=== PATIENT | male | born 1965 | race African-American/Black ===

== ENCOUNTER 2016-11-04 16:07 | Inpatient (IN) | payer SELFPAY ==
[~2016-11-04] VITALS: Ht 180.3 cm; Wt 64.9 kg
[2016-11-04] MEDS ORDERED: IV NORMAL SALINE 1000ML BAG 1,000 ML IV SCH (16:25)
[2016-11-04] MEDS ORDERED: ONDANSETRON PF 4 MG/2 ML VIAL. IV ONE (16:30)
[2016-11-04] MEDS ORDERED: NITROGLYCERIN SUBLINGUAL 0.4 MG BOTTLE OF 25. SL PRN (16:30)
[2016-11-04] MEDS ORDERED: ASPIRIN CHEWABLE 81 MG TABLET. PO ONE (16:30)
[2016-11-04] MEDS ORDERED: FENTANYL PF 100 MCG/2 ML VIAL. IV PRN (16:30)
--- NOTE | 2016-11-04 16:38 | PHYS DOC ---
Past Medical History Past Medical History: No Pertinent History Past Surgical History: Other Additional Past Surgical Histo: Inguinal hernia R) Alcohol Use: Heavy Drug Use: None Adult General Chief Complaint Chief Complaint: CHEST PAIN HPI HPI Patient is a 51 year old male who presents with complaint of chest pain. Patient states he started having intermittent chest pain last night, however he started getting constant pain earlier this morning that has persisted throughout the day. Patient states that the pain is left-sided, pressure-like, and radiates through his chest into his back. Patient has had associated nausea with his symptoms. Patient has no known health problems but states that he has a greater than [id number] history of smoking. Patient also admits to family history of myocardial infarction in his mother. Patient currently rates his pain as 10 out of 10. Patient has not taken any medications to help with his symptoms at this time. Patient denies any known exacerbating factors, stating that "everything makes it hurt." Patient denies any recent cardiac stress testing. Patient does not have a primary physician at this time. Review of Systems Review of Systems Constitutional: Denies fever or chills [] Eyes: Denies change in visual acuity, redness, or eye pain [] HENT: Denies nasal congestion or sore throat [] Respiratory: Denies cough or shortness of breath [] Cardiovascular: Chest pain [] GI: Nausea, denies abdominal pain, vomiting, bloody stools or diarrhea [] : Denies dysuria or hematuria [] Musculoskeletal: Denies back pain or joint pain [] Integument: Denies rash or skin lesions [] Neurologic: Denies headache, focal weakness or sensory changes [] Current Medications Current Medications Current Medications Medications (Trade) Dose Ordered Sig/Ghanshyam Start Time Stop Time Status Last Admin Dose Admin Aspirin (Children'S Aspirin) 324 mg 1X ONCE 11/04/16 16:30 11/04/16 16:31 DC 11/04/16 17:00 324 MG Fentanyl Citrate 50 mcg 50 mcg PRN Q15MIN PRN 11/04/16 16:30 11/05/16 16:29 11/04/16 17:04 50 MCG Nitroglycerin (Nitrostat) 0.4 mg PRN Q5MIN PRN 11/04/16 16:30 11/05/16 16:29 Ondansetron HCl (Zofran) 4 mg 1X ONCE 11/04/16 16:30 11/04/16 16:31 DC 11/04/16 17:02 4 MG Sodium Chloride (Iv Sodium Chloride 0.9% 1000ml Bag) 1,000 ml @ 100 mls/hr Q10H 11/04/16 16:25 11/05/16 02:24 11/04/16 17:00 100 MLS/HR Allergies Allergies Allergies Coded Allergies Type Severity Reaction Last Updated Verified No Known Drug Allergies 02/12/15 No Physical Exam Physical Exam Constitutional: Alert, afebrile, appears in moderate discomfort. [] HENT: Normocephalic, atraumatic, bilateral external ears normal, oropharynx moist, no oral exudates, nose normal. [] Eyes: PERRLA, EOMI, conjunctiva normal, no discharge. [] Neck: Normal range of motion, no tenderness, supple, no stridor. [] Cardiovascular:Heart rate regular rhythm, no murmur [] Lungs & Thorax: Bilateral breath sounds clear to auscultation [] Abdomen: Bowel sounds normal, soft, no tenderness, no masses, no pulsatile masses. [] Skin: Warm, dry, no erythema, no rash. [] Back: No tenderness, no CVA tenderness. [] Extremities: No tenderness, no cyanosis, no clubbing, ROM intact, no edema. [] Neurologic: Alert and oriented X 3, normal motor function, normal sensory function, no focal deficits noted. [] Current Patient Data Vital Signs Vital Signs Date Time Temp Pulse Resp B/P Pulse Ox O2 Delivery O2 Flow Rate FiO2 11/04/16 17:55 60 24 129/78 97 Nasal Cannula 1 11/04/16 16:10 98.3 98.3 Lab Values Laboratory Tests Test 11/04/16 16:35 11/04/16 17:25 White Blood Count 7.0x10^3/uL (4.0-11.0) Red Blood Count 5.15x10^6/uL (4.30-5.70) Hemoglobin 16.5g/dL (13.0-17.5) Hematocrit 48.7% (39.0-53.0) Mean Corpuscular Volume 95fL (79-100) Mean Corpuscular Hemoglobin 32pg (25-35) Mean Corpuscular Hemoglobin Concent 34g/dL (31-37) Red Cell Distribution Width 14.6% (11.5-14.5) H Platelet Count 218x10^3/uL (140-400) Neutrophils (%) (Auto) 77% (31-73) H Lymphocytes (%) (Auto) 15% (24-48) L Monocytes (%) (Auto) 7% (0-9) Eosinophils (%) (Auto) 0% (0-3) Basophils (%) (Auto) 1% (0-3) Neutrophils # (Auto) 5.3x10^3uL (1.8-7.7) Lymphocytes # (Auto) 1.0x10^3/uL (1.0-4.8) Monocytes # (Auto) 0.5x10^3/uL (0.0-1.1) Eosinophils # (Auto) 0.0x10^3/uL (0.0-0.7) Basophils # (Auto) 0.0x10^3/uL (0.0-0.2) Sodium Level 143mmol/L (136-145) Potassium Level 3.5mmol/L (3.5-5.1) Chloride Level 101mmol/L (98-107) Carbon Dioxide Level 30mmol/L (21-32) Anion Gap 12 (6-14) Blood Urea Nitrogen 10mg/dL (8-26) Creatinine 1.0mg/dL (0.7-1.3) Estimated GFR (Cockcroft-Gault) 94.9 Glucose Level 125mg/dL (70-99) H Calcium Level 10.0mg/dL (8.5-10.1) Magnesium Level 1.7mg/dL (1.8-2.4) L Total Bilirubin 0.3mg/dL (0.2-1.0) Direct Bilirubin 0.1mg/dL (0.0-0.2) Aspartate Amino Transferase (AST) 19U/L (15-37) Alanine Aminotransferase (ALT) 15U/L (16-63) L Alkaline Phosphatase 96U/L (46-116) Creatine Kinase 78U/L (39-308) Creatine Kinase MB (Mass) < 0.5ng/mL (0.0-3.6) Creatine Kinase MB Relative Index 0.6% (0-4) Troponin I Quantitative < 0.017ng/mL (0.000-0.055) AI-Oin-D-Type Natriuretic Peptide 91pg/mL (0-124) Total Protein 7.5g/dL (6.4-8.2) Albumin 3.8g/dL (3.4-5.0) Lipase 77U/L (73-393) Urine Collection Type Unknown Urine Color Jocelyn Urine Clarity Clear Urine pH 6.0 Urine Specific [place] >=1.030 Urine Protein 30mg/dL (NEG-TRACE) Urine Glucose (UA) Negativemg/dL (NEG) Urine Ketones (Stick) 15mg/dL (NEG) Urine Blood Negative (NEG) Urine Nitrite Negative (NEG) Urine Bilirubin Small (NEG) Urine Urobilinogen Dipstick 1.0mg/dL (0.2 mg/dL) Urine Leukocyte Esterase Small (NEG) Urine RBC 0/HPF (0-2) Urine WBC 1-4/HPF (0-4) Urine Squamous Epithelial Cells Occ/LPF Urine Bacteria 0/HPF (0-FEW) Urine Mucus Marked/LPF Urine Opiates Screen Pos (NEG) Urine Methadone Screen Neg (NEG) Urine Barbiturates Neg (NEG) Urine Phencyclidine Screen Neg (NEG) Urine Amphetamine/Methamphetamine Neg (NEG) Urine Benzodiazepines Screen Neg (NEG) Urine Cocaine Screen Neg (NEG) Urine Cannabinoids Screen Pos (NEG) Urine Ethyl Alcohol Neg (NEG) Laboratory Tests 11/04/16 16:35 Laboratory Tests 11/04/16 16:35 EKG EKG Interpreted by me: Heart rate 70, sinus rhythm, rightward axis, no acute ST/T- wave abnormalities present [] Radiology/Procedures Radiology/Procedures [facility] [address] [place] [address] IMAGING REPORT Signed PATIENT: ALEXIA HARRIS ACCOUNT: [id number] : 1965 LOCATION: ER AGE: 51 SEX: M EXAM STATUS: PRE ER ORD. PHYSICIAN: KRISTIN CARCAMO MD REASON: chest pain PROCEDURE: PORTABLE CHEST 1V Portable chest, 11/04/2016: History: Chest pain The heart size and pulmonary vascularity are normal. Small nodular opacities projected over the lower chest are most likely nipple shadows. No pulmonary infiltrates are seen. There is no evidence of pleural fluid. IMPRESSION: No acute cardiopulmonary abnormality is detected. DICTATED and SIGNED BY: KATHY NAQVI MD DATE: 11/04/16 8346 CC: KRISTIN CARCAMO MD; NO PCP ~ [] Course & Med Decision Making Course & Med Decision Making Pertinent Labs and Imaging studies reviewed. (See chart for details) The patient was treated with aspirin and fentanyl in the emergency department. Patient's symptoms have improved with treatment. The patient has risk factors for coronary artery disease and patient does not have adequate follow-up. For this reason the patient will need to be admitted for rule out of myocardial infarction. I spoke with Dr. Cisneros who accepted care patient in hospital. A consult was placed to Dr. Meadows of cardiology to follow with patient in hospital. Dragon Disclaimer Dragon Disclaimer This electronic medical record was generated, in whole or in part, using a voice recognition dictation system. Departure Departure Impression: Primary Impression: Chest pain Additional Impressions: Tobacco use Family history of myocardial infarction Disposition: ADMITTED INPATIENT Admitting Physician: Sarah Cisneros Condition: STABLE Referrals: NO PCP (PCP) Problem Qualifiers Primary Impression: Chest pain Chest pain type: unspecified Qualified Code: R07.9 - Chest pain, unspecified KRISTIN CARCAMO MD Nov 04, 2016 16:38
--- NOTE | 2016-11-04 16:48 | RAD ---
Portable chest, 11/04/2016: History: Chest pain The heart size and pulmonary vascularity are normal. Small nodular opacities projected over the lower chest are most likely nipple shadows. No pulmonary infiltrates are seen. There is no evidence of pleural fluid. IMPRESSION: No acute cardiopulmonary abnormality is detected.
[2016-11-04 16:58] LABS: BASO % 1 % (0-3); EOS % 0 % (0-3); HEMATOCRIT 48.7 % (39.0-53.0); HEMOGLOBIN 16.5 g/dL (13.0-17.5); LYMPH % 15 % (24-48); MEAN CORPUSCULAR HEMOGLOBIN 32 pg (25-35); MEAN CORPUSCULAR HGB CONC 34 g/dL (31-37); MEAN CORPUSCULAR VOLUME 95 fL (79-100); MONO % 7 % (0-9); NEUT % 77 % (31-73); PLATELET COUNT 218 x10^3/uL (140-400); RED BLOOD COUNT 5.15 x10^6/uL (4.30-5.70); RED CELL DISTRIBUTION WIDTH 14.6 % (11.5-14.5)
[2016-11-04 17:39] LABS: BILIRUBIN,URINE SMALL (NEG); GLUCOSE,URINE NEGATIVE (NEG); NITRITE,URINE NEGATIVE (NEG); PROTEIN,URINE 30 mg/dL (NEG-TRACE)
[2016-11-04 17:45] LABS: CREATINE KINASE 78 U/L (39-308)
[2016-11-04 17:45] LABS: BACTERIA,URINE 0 /HPF (0-FEW); BARBITURATES NEG (NEG); BENZODIAZEPINES NEG (NEG); CANNABINOIDS POS (NEG); COCAINE NEG (NEG); METHADONE NEG (NEG); OPIATES POS (NEG); PHENCYCLIDINE NEG (NEG); RBC,URINE 0 /HPF (0-2); SQUAMOUS EPITHELIAL CELL,UR OCC /LPF
[2016-11-04 17:52] LABS: CKMB INDEX 0.6 % (0-4); CKMB MASS < 0.5 ng/mL (0.0-3.6)
[2016-11-04 17:52] LABS: ETHANOL, URINE NEG (NEG)
[2016-11-04 17:58] LABS: GFR 94.9; POTASSIUM 3.5 mmol/L (3.5-5.1)
[2016-11-04 18:05] LABS: ALBUMIN 3.8 g/dL (3.4-5.0); DIRECT BILIRUBIN 0.1 mg/dL (0.0-0.2); MAGNESIUM 1.7 mg/dL (1.8-2.4); TOTAL BILIRUBIN 0.3 mg/dL (0.2-1.0); TOTAL PROTEIN 7.5 g/dL (6.4-8.2)
[2016-11-04] MEDS ORDERED: ACETAMINOPHEN 325 MG TABLET. PO PRN (19:15)
[2016-11-04 20:30] VITALS: BP 129/91
[2016-11-04] MEDS: IV NORMAL SALINE 1000ML BAG 1,000 ML IV SCH (22:27)
[2016-11-04] MEDS ORDERED: MORPHINE SULFATE 2 MG/ML DISP.SYRIN. IV PRN (22:30)
[2016-11-04 23:25] VITALS: BP 128/78
--- NOTE | 2016-11-05 00:07 | HP ---
ADMIT DATE: 11/04/2016 CHIEF COMPLAINT: Chest pain. 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 He states he does not have any coronary problems that he knows of. He presents with chest pain that has been occurring for several days. He rates it at 7/10. He has associated anxiety. Discussed the case with ER physician. The patient does have a couple of risk factors. We are going to admit him and rule out coronary artery disease. PAST MEDICAL HISTORY: Tobacco abuse, arthritis, hypertension. ALLERGIES: None. FAMILY HISTORY: Hypertension and coronary artery disease in his mother. SOCIAL HISTORY: He does smoke. No drinking or drugs. 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 MEDICATIONS: Reviewed, please refer to the MRAD. REVIEW OF SYSTEMS: GENERAL: No history of weight change, weakness or fevers. SKIN: No bruising, hair changes or rashes. EYES: No blurred, double or loss of vision. NOSE AND THROAT: No history of nosebleeds, hoarseness or sore throat. HEART: No history of palpitations or shortness of breath on exertion. He complains of chest pain. LUNGS: Denies cough, hemoptysis, wheezing or shortness of breath. GASTROINTESTINAL: Denies changes in appetite, nausea, vomiting, diarrhea or constipation. GENITOURINARY: No history of frequency, urgency, hesitancy or nocturia. NEUROLOGIC: Denies history of numbness, tingling, tremor or weakness. PSYCHIATRIC: No history of panic, anxiety or depression. ENDOCRINE: No history of heat or cold intolerance, polyuria or polydipsia. EXTREMITIES: Denies muscle weakness, joint pain, pain on walking or stiffness. PHYSICAL EXAMINATION: VITAL SIGNS: Stable. Temperature is afebrile, pulse 63, respirations 20, blood pressure 113/80. GENERAL: He is alert, cooperative. HEART: Normal S1, S2. LUNGS: Clear. ABDOMEN: Soft, positive bowel sounds. EXTREMITIES: No edema. SKIN: No rashes. PSYCHIATRIC: He is anxious. VASCULAR: Good capillary refill. ENDOCRINE: No thyromegaly. LYMPHATICS: No cervical nodes. HEMATOPOIETIC: No bruising. LABORATORY DATA: Troponin is 0. EKG shows sinus rhythm. ASSESSMENT AND PLAN: Chest pain, rule out coronary artery disease. We will check serial enzymes, serial EKGs. Consult Dr. Katrapati, suspect he may need a stress test. I told him to quit smoking. Resume home medicines. DARRYL SAEED DO DR: JOSE/abel JOB#: [id number] / [id number]
[2016-11-05 02:49] VITALS: BP 123/69
[2016-11-05] MEDS: IV NORMAL SALINE 1000ML BAG 1,000 ML IV SCH (03:02)
[2016-11-05] MEDS ORDERED: PROMETH/CODEINE 6.25/10MG 5 ML SYRUP. PO PRN (04:45)
--- NOTE | 2016-11-05 06:24 | EKG ---
[facility] [address] [place] [address] Test Date: 2016-11-04 Test Time: 16:21:23 Pat Name: ALEXIA HARRIS Department: Room: 569 1 Gender: M Curtain Mender: : 1965 Requested By: KRISTIN CARCAMO Order Number: [id number] Reading MD: Angle Rincon Measurements Intervals [place] Rate: 70 P: -40 GA: 124 QRS: 101 QRSD: 78 T: 85 QT: 398 QTc: 433 Interpretive Statements SINUS RHYTHM RIGHTWARD AXIS LOW LIMB LEAD VOLTAGE QRS(T) CONTOUR ABNORMALITY CONSISTENT WITH HIGH LATERAL INFARCT PROBABLY OLD ABNORMAL ECG RI6.01 No previous ECG available for comparison Electronically Signed On 11-07-2016 18:46:59 CDT by Angle Rincon
[2016-11-05 06:49] LABS: BASO % 1 % (0-3); EOS % 1 % (0-3); HEMATOCRIT 45.3 % (39.0-53.0); HEMOGLOBIN 14.9 g/dL (13.0-17.5); LYMPH # 1.8 x10^3/uL (1.0-4.8); LYMPH % 33 % (24-48); MEAN CORPUSCULAR HEMOGLOBIN 32 pg (25-35); MEAN CORPUSCULAR HGB CONC 33 g/dL (31-37); MEAN CORPUSCULAR VOLUME 97 fL (79-100); MONO % 9 % (0-9); NEUT % 57 % (31-73); PLATELET COUNT 196 x10^3/uL (140-400); RED BLOOD COUNT 4.68 x10^6/uL (4.30-5.70); WHITE BLOOD COUNT 5.4 x10^3/uL (4.0-11.0)
[2016-11-05 07:00] VITALS: BP 113/73
[2016-11-05 07:05] LABS: CALCIUM 9.1 mg/dL (8.5-10.1); CREATININE 0.9 mg/dL (0.7-1.3); GFR 107.2; POTASSIUM 3.1 mmol/L (3.5-5.1)
--- NOTE | 2016-11-05 09:03 | PDOC2 ---
SEMAJ BEY [employer]TAIN 11/05/16 0903: CARDIAC CONSULT DATE OF CONSULT Date of Consult DATE: 11/05/16 TIME: 08:55 REASON FOR CONSULT Reason for Consult: Chest pain REFERRING PHYSICIAN Referring Physician: Sheri SOURCE Source: Chart review, Patient HISTORY OF PRESENT ILLNESS HISTORY OF PRESENT ILLNESS This is a 51 yo male admitted for complains of chest pain. Reports as sharp then pressure to right chest that radiated to mid back. This started 2 days ago 8PM which then he felt slightly nauseated as well and slept it off. The next day he was doing well and decided to lift about 100 lb box and felt chest discomfort and was nauseated as well. His nausea resolved but CP was intermittent throughout the day. He then started having diarrhea, 3 bouts of diarrhea yesterday 1 was watery then x2 loose. Denies any fever or chills. There was no diaphoresis, palpitations, dizziness, SOA nor DURBIN. No further recurrence of his symptoms since in ED. Also no recent falls or injury he also has been having almost a daily heartburn which he does not take any medications for it. No daily NSAID use. He does take sinus medications which has sudafed in it almost everyday for his allergies are bad. Denies any CAD, VTE in the past. PAST MEDICAL HISTORY Cardiovascular: No pertinent hx Pulmonary: No pertinent hx CENTRAL NERVOUS SYSTEM: Other (No pertinent history) GI: No pertinent hx Heme/Onc: No pertinent hx Hepatobiliary: No pertinent hx Psych: No pertinent hx Musculoskeletal: Osteoarthritis Rheumatologic: No pertinent hx Infectious disease: No pertinent hx ENT: Allergic Rhinitis Renal/: No pertinent hx Endocrine: No pertinent hx Dermatology: No pertinent hx PAST SURGICAL HISTORY Past Surgical History: Other (left inguinal hernia repair as a child) FAMILY HISTORY Family History: Coronary Artery Disease (mother CAD in her 30s) SOCIAL HISTORY Smoke: 1 pack per day (>20) ALCOHOL: occassional Drugs: Marijuana Lives: with Family CURRENT MEDICATIONS CURRENT MEDICATIONS Current Medications Medications (Trade) Dose Ordered Sig/Ghanshyam Route PRN Reason Start Time Stop Time Status Last Admin Dose Admin Aspirin (Children'S Aspirin) 324 mg 1X ONCE PO 11/04/16 16:30 11/04/16 16:31 DC 11/04/16 17:00 Fentanyl Citrate 50 mcg 50 mcg PRN Q15MIN PRN IV PAIN GREATER THAN 310 11/04/16 16:30 11/05/16 16:29 11/04/16 17:04 Sodium Chloride (Iv Sodium Chloride 0.9% 1000ml Bag) 1,000 ml @ 100 mls/hr Q10H IV 11/04/16 16:25 11/05/16 02:24 DC 11/04/16 17:00 Ondansetron HCl 4 mg 4 mg 1X ONCE IV 11/04/16 16:30 11/04/16 16:31 DC 11/04/16 17:02 Sodium Chloride (Iv Sodium Chloride 0.9% 1000ml Bag) 1,000 ml @ 100 mls/hr Q10H IV 11/04/16 19:01 11/05/16 19:00 11/05/16 03:02 Morphine Sulfate 2 mg PRN Q2HR PRN IV SEVERE PAIN 11/04/16 22:30 11/04/16 23:19 ALLERGIES ALLERGIES: Coded Allergies: No Known Drug Allergies (Unverified , 02/12/15) ROS Review of System 14 point ROS evaluated with pertinent positives noted per HPI PHYSICAL EXAM General: Alert, Oriented X3, Cooperative, No acute distress HEENT: Atraumatic, Mucous membr. moist/pink Lungs: Clear to auscultation, Normal air movement Heart: Regular rate, Normal S1, Normal S2, Other (2/6 systolic murmur to LLS border) Abdomen: Soft, No tenderness Extremities: No cyanosis, No edema Skin: No breakdown, No significant lesion Neuro: Normal speech, Sensation intact Psych/Mental Status: Mental status NL, Mood NL MUSCULOSKELETAL: Osteoarthritic changes both hands VITALS VITALS Vital Signs Date Time Temp Pulse Resp B/P Pulse Ox O2 Delivery O2 Flow Rate FiO2 11/05/16 07:00 98.3 63 20 113/73 91 Room Air 98.3 11/04/16 23:19 1.0 LABS Lab: Laboratory Tests Test 11/04/16 16:35 11/04/16 17:25 11/05/16 01:30 11/05/16 05:30 White Blood Count 7.0x10^3/uL (4.0-11.0) 5.4x10^3/uL (4.0-11.0) Red Blood Count 5.15x10^6/uL (4.30-5.70) 4.68x10^6/uL (4.30-5.70) Hemoglobin 16.5g/dL (13.0-17.5) 14.9g/dL (13.0-17.5) Hematocrit 48.7% (39.0-53.0) 45.3% (39.0-53.0) Mean Corpuscular Volume 95fL (79-100) 97fL (79-100) Mean Corpuscular Hemoglobin 32pg (25-35) 32pg (25-35) Mean Corpuscular Hemoglobin Concent 34g/dL (31-37) 33g/dL (31-37) Red Cell Distribution Width 14.6% (11.5-14.5) 15.0% (11.5-14.5) Platelet Count 218x10^3/uL (140-400) 196x10^3/uL (140-400) Neutrophils (%) (Auto) 77% (31-73) 57% (31-73) Lymphocytes (%) (Auto) 15% (24-48) 33% (24-48) Monocytes (%) (Auto) 7% (0-9) 9% (0-9) Eosinophils (%) (Auto) 0% (0-3) 1% (0-3) Basophils (%) (Auto) 1% (0-3) 1% (0-3) Neutrophils # (Auto) 5.3x10^3uL (1.8-7.7) 3.0x10^3uL (1.8-7.7) Lymphocytes # (Auto) 1.0x10^3/uL (1.0-4.8) 1.8x10^3/uL (1.0-4.8) Monocytes # (Auto) 0.5x10^3/uL (0.0-1.1) 0.5x10^3/uL (0.0-1.1) Eosinophils # (Auto) 0.0x10^3/uL (0.0-0.7) 0.1x10^3/uL (0.0-0.7) Basophils # (Auto) 0.0x10^3/uL (0.0-0.2) 0.0x10^3/uL (0.0-0.2) Sodium Level 143mmol/L (136-145) 143mmol/L (136-145) Potassium Level 3.5mmol/L (3.5-5.1) 3.1mmol/L (3.5-5.1) Chloride Level 101mmol/L (98-107) 103mmol/L (98-107) Carbon Dioxide Level 30mmol/L (21-32) 26mmol/L (21-32) Anion Gap 12 (6-14) 14 (6-14) Blood Urea Nitrogen 10mg/dL (8-26) 10mg/dL (8-26) Creatinine 1.0mg/dL (0.7-1.3) 0.9mg/dL (0.7-1.3) Estimated GFR (Cockcroft-Gault) 94.9 107.2 Glucose Level 125mg/dL (70-99) 104mg/dL (70-99) Calcium Level 10.0mg/dL (8.5-10.1) 9.1mg/dL (8.5-10.1) Magnesium Level 1.7mg/dL (1.8-2.4) Total Bilirubin 0.3mg/dL (0.2-1.0) Direct Bilirubin 0.1mg/dL (0.0-0.2) Aspartate Amino Transf (AST/SGOT) 19U/L (15-37) Alanine Aminotransferase (ALT/SGPT) 15U/L (16-63) Alkaline Phosphatase 96U/L (46-116) Creatine Kinase 78U/L (39-308) Creatine Kinase MB (Mass) < 0.5ng/mL (0.0-3.6) Creatine Kinase MB Relative Index 0.6% (0-4) Troponin I Quantitative < 0.017ng/mL (0.000-0.055) < 0.017ng/mL (0.000-0.055) TQ-Uma-Z-Type Natriuretic Peptide 91pg/mL (0-124) Total Protein 7.5g/dL (6.4-8.2) Albumin 3.8g/dL (3.4-5.0) Lipase 77U/L (73-393) Urine Collection Type Unknown Urine Color Jocelyn Urine Clarity Clear Urine pH 6.0 Urine Specific [place] >=1.030 Urine Protein 30mg/dL (NEG-TRACE) Urine Glucose (UA) Negativemg/dL (NEG) Urine Ketones (Stick) 15mg/dL (NEG) Urine Blood Negative (NEG) Urine Nitrite Negative (NEG) Urine Bilirubin Small (NEG) Urine Urobilinogen Dipstick 1.0mg/dL (0.2 mg/dL) Urine Leukocyte Esterase Small (NEG) Urine RBC 0/HPF (0-2) Urine WBC 1-4/HPF (0-4) Urine Squamous Epithelial Cells Occ/LPF Urine Bacteria 0/HPF (0-FEW) Urine Mucus Marked/LPF Urine Opiates Screen Pos (NEG) Urine Methadone Screen Neg (NEG) Urine Barbiturates Neg (NEG) Urine Phencyclidine Screen Neg (NEG) Urine Amphetamine/Methamphetamine Neg (NEG) Urine Benzodiazepines Screen Neg (NEG) Urine Cocaine Screen Neg (NEG) Urine Cannabinoids Screen Pos (NEG) Urine Ethyl Alcohol Neg (NEG) Test 11/05/16 06:40 Troponin I Quantitative < 0.017ng/mL (0.000-0.055) ASSESSMENT/PLAN ASSESSMENT/PLAN 1. Atypical chest pain: doubt ACS. Suspect GI with MSK element. 2. Possible gastroenteritis vs GB anomaly: nausea and diarrhea, defer to PCP 3. Hypokalemia related to diarrhea, hypomagnesemia resolved. 4. GERD exacerbation: almost daily heartburn per pt. 5. Allergic rhinitis: daily use of Sudafed 6. Tobaccoism 7. Substance abuse: positive for opioids and marijuana Recommendations 1. TTE today, if no significant changes then no further testing 2. Lipids, Replace K. Recommend GB sono defer to PCP. 3. Smoking cessation, substance abstinence 4. Discouraged daily sudafed, will likely need nasal spray, defer to PCP 5. Start on PPI. Problems: LUC LEVINE MD 11/05/16 1316: CARDIAC CONSULT ALLERGIES ALLERGIES: Coded Allergies: No Known Drug Allergies (Unverified , 02/12/15) ASSESSMENT/PLAN ASSESSMENT/PLAN Patient seen and examined. Agree with SYSTEM ANALYST's assessment and plan. Chest pain very atypical, reproducible to palpation and most probably musculoskeletal. Myocardial infarction ruled out. Check 2-D echo to assess LV function and rule out wall motion abnormalities. Thank you for consultation. Problems: SEMAJ BEY APRN Nov 05, 2016 09:03 LUC LEVINE MD Nov 05, 2016 13:16
[2016-11-05 09:06] LABS: CHOLESTEROL/HDL RATIO 3.3; MAGNESIUM 1.9 mg/dL (1.8-2.4)
[2016-11-05 11:00] VITALS: BP 130/78
[2016-11-05] MEDS: POTASSIUM CHLORIDE 20 MEQ TABLET.ER. PO SCH (12:00)
== END 2016-11-05 12:34 | disposition home or self-care (01) | DRG 189 ==
LOC: ER 16:07 → 5 SOUTH 18:00
PROVIDERS: ADMIT Internal Medicine; ATTEND Internal Medicine
DX: J96.20 Acute and chronic respiratory failure, unspecified whether with hypoxia or hypercapnia (principal); K52.9 Noninfective gastroenteritis and colitis, unspecified; R07.89 Other chest pain; E83.42 Hypomagnesemia; E87.6 Hypokalemia; F17.200 Nicotine dependence, unspecified, uncomplicated; F41.9 Anxiety disorder, unspecified; I10 Essential (primary) hypertension; J30.9 Allergic rhinitis, unspecified; M19.90 Unspecified osteoarthritis, unspecified site; R19.7 Diarrhea, unspecified; K21.9 Gastro-esophageal reflux disease without esophagitis; Z82.49 Family history of ischemic heart disease and other diseases of the circulatory system; Q89.9 Congenital malformation, unspecified
CPT/HCPCS: 36415; 71010; 80048; 80061; 80076; 81001; 82553; 83690; 83735; 83880; 84484; 85027; 87086; 93005; 96374; 96375; G0481; J2270; J2405; J3010; J7030; 99285-25

== ENCOUNTER 2018-11-20 07:13 | Emergency (ER) | payer BC ==
[~2018-11-20] VITALS: Ht 180.3 cm; Wt 72.6 kg
[~2018-11-20 07:13] MED LIST: AMLO10TA8 PO; HYDR-2761 PO; PANT40TA5 PO
[2018-11-20 07:28] VITALS: BP 155/87
--- NOTE | 2018-11-20 07:40 | PHYS DOC ---
Past Medical History Past Medical History: No Pertinent History Past Surgical History: Other Additional Past Surgical Histo: Inguinal hernia R) Smoking: Cigarettes Alcohol Use: Occasionally Drug Use: Marijuana Adult General Chief Complaint Chief Complaint: BACK PAIN OR INJURY HPI HPI Patient is a 53 year old male who presents with living of a fall and injury to back and right leg. Patient states he had a fall from a dock about 5 feet high and twisted his back and his right leg between his truck and dock 4 days ago without loss of consciousness and other injuries. Patient complaining of constant pain in his right lower extremity and intermittent episodes of pain in right lower back that getting force with movement. Patient rated his pain 8/10 and states he took 600 mg ibuprofen with partial improvement of pain. Patient is up-to-date with tetanus immunization. Review of Systems Review of Systems Constitutional: Denies fever or chills [] Eyes: Denies change in visual acuity, redness, or eye pain [] HENT: Denies nasal congestion or sore throat [] Respiratory: Denies cough or shortness of breath [] Cardiovascular: No additional information not addressed in HPI [] GI: Denies abdominal pain, nausea, vomiting, bloody stools or diarrhea [] : Denies dysuria or hematuria [] Musculoskeletal: Reports back pain and joint pain Integument: Denies rash or skin lesions [] Neurologic: Denies headache, focal weakness or sensory changes [] Endocrine: Denies polyuria or polydipsia [] All other systems were reviewed and found to be within normal limits, except as documented in this note. Current Medications Current Medications Current Medications Medications (Trade) Dose Ordered [facility] Start Time Stop Time Status Last Admin Dose Admin Ketorolac Tromethamine (Toradol Im) 60 mg 1X ONCE 11/20/18 07:45 11/20/18 07:46 DC 11/20/18 07:48 60 MG Allergies Allergies Allergies Coded Allergies Type Severity Reaction Last Updated Verified No Known Drug Allergies 02/12/15 No Physical Exam Physical Exam Constitutional: Well developed, well nourished, mild distress, non-toxic appearance. [] HENT: Normocephalic, atraumatic. Eyes: PERRLA, EOMI, conjunctiva normal, no discharge. [] Neck: Normal range of motion, no tenderness, supple, no stridor. [] Cardiovascular:Heart rate regular rhythm, no murmur [] Lungs & Thorax: Bilateral breath sounds clear to auscultation [] Skin: Warm, dry, no erythema, no rash. [] Back: No midline tenderness, no contusion or deformity, mild muscle tenderness in right lower paraspinal area. Extremities: Right lower extremity with abrasions in anterior of the without laceration or deformity with mild tenderness, no cyanosis, no clubbing, ROM intact, no edema. [] Neurologic: Alert and oriented X 3, normal motor function, normal sensory function, no focal deficits noted. [] Psychologic: Affect normal, judgement normal, mood normal. [] Current Patient Data Vital Signs Vital Signs Date Time Temp Pulse Resp B/P (MAP) Pulse Ox O2 Delivery O2 Flow Rate FiO2 11/20/18 07:28 97.7 94 16 155/87 (109) 97 Room Air 97.7 EKG EKG [] Radiology/Procedures Radiology/Procedures [][address] [id number] IMAGING REPORT Signed PATIENT: ALEXIA HARRIS ACCOUNT: [id number] : 1965 LOCATION: ER AGE: 53 SEX: M EXAM STATUS: REG ER ORD. PHYSICIAN: BRENDA MORTON MD REASON: fall PROCEDURE: LUMBAR SPINE 2-3V Examination: LUMBAR SPINE 2-3V History: PT FELL ON Tuesday11/16/18, PAIN TO LOW BACK Comparison/Correlation: None Findings: Total 3 images of the muscular obtained. This includes frontal, lateral, and cone-down L5-S1 lateral view. Alignment is normal. Vertebral body heights are adequate. Minimal spurring is noted involving the low thoracic and upper lumbar spine. No acute fracture or bony destruction. Mild facet joint degenerative changes of the low lumbar spine are present. Minimal levo convexity of the lumbar spine. Impression: No suspicious process. Electronically signed by: Dom Guillory MD (11/20/2018 8:07 AM) [id number] DICTATED and SIGNED BY: DOM GUILLORY MD DATE: 11/20/[address] [id number] IMAGING REPORT Signed PATIENT: ALEXIA HARRIS ACCOUNT: [id number] : 1965 LOCATION: ER AGE: 53 SEX: M EXAM STATUS: REG ER ORD. PHYSICIAN: BRENDA MORTON MD REASON: fall PROCEDURE: TIBIA FIBULA RIGHT Examination: TIBIA FIBULA RIGHT History: PT FELL ON Tuesday11/16/18, PAIN TO RT TIB-FIB Comparison/Correlation: None Findings: Frontal and lateral views of the right tibia and fibula were obtained. Joint spaces are unremarkable. No acute fracture or bony destruction. Soft tissues are unremarkable. Impression: No acute process. Electronically signed by: Dom Guillory MD (11/20/2018 8:06 AM) [id number] DICTATED and SIGNED BY: DOM GUILLORY MD DATE: 11/20/18805 Course & Med Decision Making Course & Med Decision Making Pertinent Imaging studies reviewed. (See chart for details) discharge: I've spoken with the patient and/or caregivers. I've explained the patient's condition, diagnosis and treatment plan based on information available to me at this time. I've answered the patient's and/or caregivers questions and addressed any concerns. The patient and/or caregivers have a good understanding the patient's diagnosis, condition and treatment plan as can be expected at this point. Vital signs have been stabilized. The patient's condition is stable for discharge from the emergency department. The patient will pursue further outpatient evaluation with her primary care provider or other designated consulting physician as outlined in the discharge instructions. Patient and/or caregivers are agreeable to this plan of care and follow-up instructions have been explained in detail. The patient and/or caregivers have received these instructions in written format and expressed understanding of these discharge instructions. The patient and her caregivers are aware that if any significant change in condition or worsening of symptoms should prompt him to immediately return to this of the closest emergency department. If an emergent department is not readily available I would encourage him to call 911. Mitesh Disclaimer Mitesh Disclaimer This electronic medical record was generated, in whole or in part, using a voice recognition dictation system. Departure Departure Impression: Primary Impression: Contusion of right lower extremity Additional Impressions: Acute lumbosacral myofascial strain Fall from height of greater than 3 feet Disposition: 01 HOME, SELF-CARE (at 844) Condition: IMPROVED Referrals: NO PCP (PCP) Patient Instructions: Abrasions, Contusion, Lumbosacral Strain Additional Instructions: Drink plenty of liquids Follow-up with your primary care physician in 3-5 days Return to ER if not getting better Apply ice on the affected area Scripts Tramadol Hcl (ULTRAM) 50 Mg Tablet 50 MG PO Q6HRS PRN for PAIN, #14 TAB 0 Refills Prov: BRENDA MORTON MD 11/20/18 Cyclobenzaprine Hcl (CYCLOBENZAPRINE HCL) 10 Mg Tablet 1 TAB PO TID for muscle pain, #30 TAB Prov: BRENDA MORTON MD 11/20/18 Problem Qualifiers Primary Impression: Contusion of right lower extremity Encounter type: initial encounter Qualified Codes: S80.11XA - Contusion of right lower leg, initial encounter Additional Impressions: Acute lumbosacral myofascial strain Encounter type: initial encounter Qualified Codes: S39.012A - Strain of muscle, fascia and tendon of lower back, initial encounter BRENDA MORTON MD Nov 20, 2018 07:40
[2018-11-20] MEDS ORDERED: KETOROLAC 60 MG/2 ML VIAL. IM ONE (07:45)
--- NOTE | 2018-11-20 08:09 | RAD ---
Examination: TIBIA FIBULA RIGHT History: PT FELL ON Tuesday11/16/18, PAIN TO RT TIB-FIB Comparison/Correlation: None Findings: Frontal and lateral views of the right tibia and fibula were obtained. Joint spaces are unremarkable. No acute fracture or bony destruction. Soft tissues are unremarkable. Impression: No acute process. Electronically signed by: Dom Espinosa MD (11/20/2018 8:06 AM) [id number]
--- NOTE | 2018-11-20 08:10 | RAD ---
Examination: LUMBAR SPINE 2-3V History: PT FELL ON Tuesday11/16/18, PAIN TO LOW BACK Comparison/Correlation: None Findings: Total 3 images of the muscular obtained. This includes frontal, lateral, and cone-down L5-S1 lateral view. Alignment is normal. Vertebral body heights are adequate. Minimal spurring is noted involving the low thoracic and upper lumbar spine. No acute fracture or bony destruction. Mild facet joint degenerative changes of the low lumbar spine are present. Minimal levo convexity of the lumbar spine. Impression: No suspicious process. Electronically signed by: Dom Espinosa MD (11/20/2018 8:07 AM) [id number]
[2018-11-20] MEDS ORDERED: CYCL10TA2 PO (08:47)
[2018-11-20] MEDS ORDERED: TRAM-48 PO (08:47)
== END 2018-11-20 08:54 | disposition home or self-care (01) ==
LOC: ER 07:13
DX: S39.012A Strain of muscle, fascia and tendon of lower back, initial encounter (principal); S80.11XA Contusion of right lower leg, initial encounter; F17.210 Nicotine dependence, cigarettes, uncomplicated; W17.89XA Other fall from one level to another, initial encounter; Y93.89 Activity, other specified; Y92.89 Other specified places as the place of occurrence of the external cause; Y99.8 Other external cause status
CPT/HCPCS: 72100; 73590; 96372; 99284; J1885

== ENCOUNTER 2018-11-27 11:21 | Emergency (ER) | payer SELFPAY ==
[~2018-11-27] VITALS: Ht 180.3 cm; Wt 72.6 kg
[~2018-11-27 11:21] MED LIST changes: +CYCL10TA2 PO; +TRAM-48 PO
--- NOTE | 2018-11-27 11:45 | PHYS DOC ---
Past Medical History Past Medical History: No Pertinent History Past Surgical History: Other Additional Past Surgical Histo: Inguinal hernia R) Additional Information: 0.5 PPD Alcohol Use: Occasionally Drug Use: Marijuana Adult General Chief Complaint Chief Complaint: MECHANICAL FALL HPI HPI Patient is a 53 year old male presents to the ED complaining of fall 10 days ago. States that he was about 5 feet high and was moving a dock plate when his right leg went down between the truck and the dock. Patient was seen after the fall in the ED and had imaging of his lower back and lower leg that were negative. Patient complains of pain to right hip and right foot. Describes his pain as sharp. He rates his pain as 7 out of 10. Denies LOC, vision changes, nausea/vomiting, head/neck injury, weakness, paresthesias, bowel/bladder changes, saddle anesthesia, fever, abdominal pain. Review of Systems Review of Systems Constitutional: Denies fever or chills [] Eyes: Denies change in visual acuity, redness, or eye pain [] HENT: Denies nasal congestion or sore throat [] Respiratory: Denies cough or shortness of breath [] Cardiovascular: No additional information not addressed in HPI [] GI: Denies abdominal pain, nausea, vomiting, bloody stools or diarrhea [] : Denies dysuria or hematuria [] Musculoskeletal: Complains of hip and right foot pain. [] Integument: Denies rash or skin lesions [] Neurologic: Denies headache, focal weakness or sensory changes [] All other systems were reviewed and found to be within normal limits, except as documented in this note. Allergies Allergies Allergies Coded Allergies Type Severity Reaction Last Updated Verified No Known Drug Allergies 02/12/15 No Physical Exam Physical Exam Constitutional: Well developed, well nourished, no acute distress, non-toxic appearance. [] HENT: Normocephalic, atraumatic Eyes: PERRLA, EOMI, conjunctiva normal, no discharge. [] Neck: Normal range of motion, no tenderness, supple, no stridor. [] Cardiovascular:Heart rate regular rhythm, no murmur [] Lungs & Thorax: Bilateral breath sounds clear to auscultation [] Abdomen: Bowel sounds normal, soft, no tenderness, no masses, no pulsatile masses. [] Skin: Warm, dry, no erythema, no rash. [] Back: No tenderness, no CVA tenderness. [] Extremities: Mild right lateral hip and right lateral foot tenderness. Full range of motion. NV Intact. No overlying skin changes. no cyanosis, no clubbing, ROM intact, no edema. [] Neurologic: Alert and oriented X 3, normal motor function, normal sensory function, no focal deficits noted. [] Psychologic: Affect normal, judgement normal, mood normal. [] Current Patient Data Vital Signs Vital Signs Date Time Temp Pulse Resp B/P (MAP) Pulse Ox O2 Delivery O2 Flow Rate FiO2 11/27/18 11:28 98.4 95 16 134/82 (99) 96 Room Air 98.4 EKG EKG [] Radiology/Procedures Radiology/Procedures PROCEDURE: FOOT RIGHT 3V RIGHT FOOT AP LATERAL OBLIQUE Clinical Indication: PT FELL 2 WEEKS AGO. PAIN TO RT FOOT Comparison: None. Findings: There is no acute fracture or dislocation. The bony alignment is normal. Mineralization is normal. No bony erosion. There is no soft tissue abnormality. IMPRESSION: No acute fracture. [] PROCEDURE: HIP RIGHT 2V WITH PELVIS RIGHT HIP AP AND LATERAL Clinical Indication: PT FELL 2 WEEKS AGO. PAIN TO RT HIP Comparison: None. Findings: AP pelvis view is obliqued. There is no acute fracture or dislocation of the right hip. There is mild 2 moderate degenerative arthropathy of the bilateral hips for patient age. Visualized pelvic bones appear intact. There is no soft tissue abnormality or radiopaque foreign body. IMPRESSION: No acute fracture or dislocation. Course & Med Decision Making Course & Med Decision Making Pertinent Labs and Imaging studies reviewed. (See chart for details) []Discussed imaging findings with patient. Patient's pain improved in the ED. Patient able to ambulate without assistance. Discussed symptomatic treatment follow-up with orthopedics if pain persists. Provided contact information/education. Discussed reasons to return to the ED. Patient understands and agrees with plan. Dragon Disclaimer Dragon Disclaimer This electronic medical record was generated, in whole or in part, using a voice recognition dictation system. Departure Departure Impression: Primary Impression: Hip pain Additional Impression: Foot sprain Disposition: HOME, SELF-CARE Condition: IMPROVED Referrals: NO PCP (PCP) YVAN WALDEN II, MD Patient Instructions: Foot Sprain, Hip Pain Problem Qualifiers LEON PALOMARES Nov 27, 2018 11:45
--- NOTE | 2018-11-27 12:32 | RAD ---
RIGHT FOOT AP LATERAL OBLIQUE Clinical Indication: PT FELL 2 WEEKS AGO. PAIN TO RT FOOT Comparison: None. Findings: There is no acute fracture or dislocation. The bony alignment is normal. Mineralization is normal. No bony erosion. There is no soft tissue abnormality. IMPRESSION: No acute fracture. Electronically signed by: Nicolás Colunga MD (11/27/2018 12:29 PM) [id number]
--- NOTE | 2018-11-27 12:34 | RAD ---
RIGHT HIP AP AND LATERAL Clinical Indication: PT FELL 2 WEEKS AGO. PAIN TO RT HIP Comparison: None. Findings: AP pelvis view is obliqued. There is no acute fracture or dislocation of the right hip. There is mild 2 moderate degenerative arthropathy of the bilateral hips for patient age. Visualized pelvic bones appear intact. There is no soft tissue abnormality or radiopaque foreign body. IMPRESSION: No acute fracture or dislocation. Electronically signed by: Nicolás Colunga MD (11/27/2018 12:31 PM) [id number]
[2018-11-27 12:58] VITALS: BP 123/81
== END 2018-11-27 12:58 | disposition home or self-care (01) ==
LOC: ER 11:21
DX: S93.601D Unspecified sprain of right foot, subsequent encounter (principal); M25.551 Pain in right hip; F17.200 Nicotine dependence, unspecified, uncomplicated; W17.89XD Other fall from one level to another, subsequent encounter
CPT/HCPCS: 73502; 73630; 99284

== ENCOUNTER 2020-09-15 09:12 | Emergency (ER) | payer SELFPAY ==
[~2020-09-15] VITALS: Ht 180.3 cm; Wt 72.0 kg
[~2020-09-15 09:12] MED LIST changes: +AMLO-187 PO; -AMLO10TA8 PO; -PANT40TA5 PO; +PANT40TA77 PO
[2020-09-15] MEDS ORDERED: ONDANSETRON PF 4 MG/2 ML VIAL. IVP ONE (10:00)
[2020-09-15] MEDS ORDERED: FAMOTIDINE 20 MG/2 ML VIAL IVP ONE (10:00)
[2020-09-15] MEDS ORDERED: IV NORMAL SALINE 1000ML BAG 1,000 ML IV ONE (10:00)
[2020-09-15 10:29] LABS: BASO % 1 % (0-3); EOS % 0 % (0-3); HEMATOCRIT 52.5 % (39.0-53.0); HEMOGLOBIN 17.7 g/dL (13.0-17.5); LYMPH # 0.5 x10^3/uL (1.0-4.8); LYMPH % 10 % (24-48); MEAN CORPUSCULAR HEMOGLOBIN 33 pg (25-35); MEAN CORPUSCULAR HGB CONC 34 g/dL (31-37); MEAN CORPUSCULAR VOLUME 98 fL (79-100); MONO # 0.3 x10^3/uL (0.0-1.1); MONO % 5 % (0-9); NEUT # 4.7 x10^3/uL (1.8-7.7); NEUT % 85 % (31-73); PLATELET COUNT 192 x10^3/uL (140-400); RED BLOOD COUNT 5.35 x10^6/uL (4.30-5.70); RED CELL DISTRIBUTION WIDTH 14.1 % (11.5-14.5); WHITE BLOOD COUNT 5.5 x10^3/uL (4.0-11.0)
[2020-09-15 10:47] LABS: ACETAMIN < 2 mcg/ml (10-30); ETHANOL < 10 mg/dL (0-10)
[2020-09-15 10:47] LABS: BILIRUBIN,URINE SMALL (NEG); CLARITY,URINE CLEAR; COLOR,URINE AMBER; NITRITE,URINE NEGATIVE (NEG); PH,URINE 5.5 (<5.0-8.0); PROTEIN,URINE 100 mg/dL (NEG-TRACE); UROBILINOGEN,URINE 0.2 mg/dL (0.2 mg/dL)
[2020-09-15 10:48] LABS: AMPHETAMINE/METHAMPHETAMINE NEG (NEG); BARBITURATES NEG (NEG); BENZODIAZEPINES NEG (NEG); CANNABINOIDS POS (NEG); COCAINE NEG (NEG); METHADONE NEG (NEG); OPIATES POS (NEG); PHENCYCLIDINE NEG (NEG)
--- NOTE | 2020-09-15 10:55 | PHYS DOC ---
Past Medical History Past Medical History: No Pertinent History Past Surgical History: Other Additional Past Surgical Histo: Inguinal hernia R) Smoking Status: Current Every Day Smoker Alcohol Use: Heavy Additional Information: WHISKEY 3-4 DAILY Drug Use: Marijuana General Adult EDM: Chief Complaint: NAUSEA/VOMITING/DIARRHA HPI: HPI: Patient is a 55 year old male with no significant medical history presenting today complaining of nausea, vomiting, abdominal cramping, symptoms began yesterday after drinking several cups of [place] alcohol with ice cream that the daughter made. Patient states something in the mix did not agree with his stomach. Denies any fever. Review of Systems: Review of Systems: Constitutional: Denies fever or chills. [] Eyes: Denies change in visual acuity. [] HENT: Denies nasal congestion or sore throat. [] Respiratory: Denies cough or shortness of breath. [] Cardiovascular: Denies chest pain or edema. [] GI: Reports abdominal pain, nausea vomiting, denies diarrhea. [] : Denies dysuria. [] Musculoskeletal: Denies back pain or joint pain. [] Integument: Denies rash. [] Neurologic: Denies headache, focal weakness or sensory changes. [] Psychiatric: Denies depression or anxiety. [] Heart Score: Risk Factors: Risk Factors: DM, Current or recent (<one month) smoker, HTN, HLP, family history of CAD, obesity. Risk Scores: Score 0 - 3: 2.5% MACE over next 6 weeks - Discharge Home Score 4 - 6: 20.3% MACE over next 6 weeks - Admit for Clinical Observation Score 7 - 10: 72.7% MACE over next 6 weeks - Early Invasive Strategies Current Medications: Current Medications Medications (Trade) Dose Ordered Sig/Ghanshyam Start Time Stop Time Status Last Admin Dose Admin Famotidine (Pepcid Vial) 20 mg 1X ONCE 09/15/20 10:00 09/15/20 10:01 DC 09/15/20 10:22 20 MG Ondansetron HCl (Zofran) 4 mg 1X ONCE 09/15/20 10:00 09/15/20 10:01 DC 09/15/20 10:22 4 MG Sodium Chloride 1,000 ml @ 1,000 mls/hr 1X ONCE 09/15/20 10:00 09/15/20 10:59 09/15/20 10:22 1,000 MLS/HR Allergies: Allergies: Allergies Coded Allergies Type Severity Reaction Last Updated Verified No Known Drug Allergies 02/12/15 No Physical Exam: PE: Constitutional: Well developed, well nourished, no acute distress, non-toxic a ppearance. [] HENT: Normocephalic, atraumatic, bilateral external ears normal, oropharynx moist, no oral exudates, nose normal. [] Eyes: PERRLA, EOMI, conjunctiva normal, no discharge. [] Neck: Normal range of motion, no tenderness, supple, no stridor. [] Cardiovascular:Heart rate regular rhythm, no murmur [] Lungs & Thorax: Bilateral breath sounds clear to auscultation [] Abdomen: Bowel sounds normal, soft, no tenderness, no masses, no pulsatile masses. [] Skin: Warm, dry, no erythema, no rash. [] Back: No tenderness, no CVA tenderness. [] Extremities: No tenderness, no cyanosis, no clubbing, ROM intact, no edema. [] Neurologic: Alert and oriented X 3, normal motor function, normal sensory function, no focal deficits noted. [] Psychologic: Affect normal, judgement normal, mood normal. [] Current Patient Data: Labs: Laboratory Tests Test 09/15/20 10:17 09/15/20 10:34 White Blood Count 5.5 x10^3/uL (4.0-11.0) Red Blood Count 5.35 x10^6/uL (4.30-5.70) Hemoglobin 17.7 g/dL (13.0-17.5) H Hematocrit 52.5 % (39.0-53.0) Mean Corpuscular Volume 98 fL (79-100) Mean Corpuscular Hemoglobin 33 pg (25-35) Mean Corpuscular Hemoglobin Concent 34 g/dL (31-37) Red Cell Distribution Width 14.1 % (11.5-14.5) Platelet Count 192 x10^3/uL (140-400) Neutrophils (%) (Auto) 85 % (31-73) H Lymphocytes (%) (Auto) 10 % (24-48) L Monocytes (%) (Auto) 5 % (0-9) Eosinophils (%) (Auto) 0 % (0-3) Basophils (%) (Auto) 1 % (0-3) Neutrophils # (Auto) 4.7 x10^3/uL (1.8-7.7) Lymphocytes # (Auto) 0.5 x10^3/uL (1.0-4.8) L Monocytes # (Auto) 0.3 x10^3/uL (0.0-1.1) Eosinophils # (Auto) 0.0 x10^3/uL (0.0-0.7) Basophils # (Auto) 0.0 x10^3/uL (0.0-0.2) Platelet Estimate Pending Lipase 44 U/L (73-393) L Salicylates Level 6.0 mg/dL (2.8-20.0) Salicylate Last Dose Date Unknown Salicylate Last Dose Time Unknown Acetaminophen Level < 2 mcg/ml (10-30) L Acetaminophen Last Dose Date Unknown Acetaminophen Last Dose Time Unknown Ethyl Alcohol Level < 10 mg/dL (0-10) Urine Opiates Screen Pos (NEG) Urine Methadone Screen Neg (NEG) Urine Barbiturates Neg (NEG) Urine Phencyclidine Screen Neg (NEG) Urine Amphetamine/Methamphetamine Neg (NEG) Urine Benzodiazepines Screen Neg (NEG) Urine Cocaine Screen Neg (NEG) Urine Cannabinoids Screen Pos (NEG) Urine Ethyl Alcohol Neg (NEG) Laboratory Tests 09/15/20 10:17 Vital Signs: Vital Signs Date Time Temp Pulse Resp B/P (MAP) Pulse Ox O2 Delivery O2 Flow Rate FiO2 09/15/20 09:20 98.5 73 18 125/93 (104) 97 Room Air 98.5 EKG: EKG: [] Radiology/Procedures: Radiology/Procedures: []PROCEDURE: CT ABD PELV W/ IV CONTRST ONLY CT ABDOMEN+PELVIS W History: N/V abd pain Comparison: None. Technique: After administration of intravenous contrast, helical CT of the abdomen and pelvis was performed from the lung bases through the ischial tuberosities. Coronal and sagittal reconstructions were obtained. 75 mL of Omnipaque 300 were used. One or more of the following dose reduction techniques were utilized: Automated exposure control (AEC), Adjustment of mA and/or kV according to patient size, Use of iterative reconstruction technique such as ASiR, CT scan done according to ALARA and image gently/image wisely Abdomen Findings: The visualized lung bases are clear. The liver, gallbladder, pancreas, spleen, and bilateral adrenal glands are normal. Symmetric renal enhancement. There are a couple of small renal hypodensities, too small to characterize but likely cysts. There is no hydronephrosis. The visualized loops of small bowel are normal. The visualized loops of large bowel are normal. There is no evidence of bowel obstruction. Appendix is normal. There is no free fluid. There is no mesenteric or retroperitoneal adenopathy. The abdominal aorta is normal in caliber. Aortoiliac atherosclerotic disease. Pelvis Findings: Mild circumferential bladder wall thickening. Left testicle partially retracted into the inguinal canal. No pelvic free fluid. There is no pelvic or inguinal adenopathy. There is no acute bony abnormality. IMPRESSION: 1. Normal caliber large and small bowel. 2. Mild circumferential bladder wall thickening, which could relate to u nderdistention, cystitis, or obstructive muscular hypertrophy. Electronically signed by: Ruddy Marie MD (09/15/2020 12:22 PM) [id number] DICTATED and SIGNED BY: RUDDY MARIE MD DATE: 09/15/20 [id number] Course & Med Decision Making: Course & Med Decision Making Pertinent Labs and Imaging studies reviewed. (See chart for details) This is a 55-year-old male patient presented to the ED today complaining of nausea, vomiting, abdominal cramping, symptoms began last night after drinking several cups of chronic oil liquor with ice cream that the daughter had made. He believes something in the mix did not agree with his stomach. CBC with normal WBC, lipase 44, urine drug screen positive for opiates, marijuana, CMP with no acute findings. Urine noted for dehydration. CT of the abdomen and pelvic is negative. Patient was given IV fluids Zofran and Pepcid. On asking him where he gets opiates that are showing up in his urine, patient states he gets oxycodone from friends. Informed him that is not a good idea. He states he takes them for chronic low back pain. He was discharged to home and encouraged to consider getting help for drug and alcohol use Dragon Disclaimer: Dragon Disclaimer: This electronic medical record was generated, in whole or in part, using a voice recognition dictation system. Departure Departure Impression: Primary Impression: Marijuana abuse Additional Impressions: Abdominal pain Qualified Codes: R10.84 - Generalized abdominal pain Nausea and vomiting Qualified Codes: R11.2 - Nausea with vomiting, unspecified ETOH abuse Opiate dependence Qualified Codes: F11.29 - Opioid dependence with unspecified opioid-induced disorder Disposition: 01 DC HOME SELF CARE/HOMELESS Condition: STABLE Referrals: NO PCP (PCP) follow up with your doctor in 1 week Patient Instructions: Alcohol Problems, Marijuana Abuse and Chemical Dependency, Nausea and Vomiting Additional Instructions: You were evaluated in the emergency room for nausea vomiting and abdominal pain. You tested positive for opiates and marijuana. Please avoid taking opiates from friends. Consider getting help for alcohol and drug use. Push fluids. Follow-up with your doctor in 1 to 2 weeks Scripts Dicyclomine Hcl (DICYCLOMINE HCL) 20 Mg Tablet 1 TAB PO TID, #30 TAB 1 Refill Prov: BISI RAGSDALE APRN 09/15/20 Ondansetron (ONDANSETRON ODT) 4 Mg Tab.rapdis 1 TAB PO PRN Q6-8HRS, #16 TAB Prov: BISI RAGSDALE APRN 09/15/20 BISI RAGSDALE APRN Sep 15, 2020 10:55
[2020-09-15 11:01] LABS: BACTERIA,URINE 0 /HPF (0-FEW); RBC,URINE RARE /HPF (0-2)
[2020-09-15 11:10] LABS: % LYMPHS 17 % (24-48); % MONOS 4 % (0-10); % SEGS 79 % (35-66)
[2020-09-15 11:11] LABS: PLT ESTIMATE ADEQUATE (ADEQUATE)
[2020-09-15 11:15] LABS: CALCIUM 9.9 mg/dL (8.5-10.1); CREATININE 0.9 mg/dL (0.7-1.3); GFR 105.6; POTASSIUM 4.1 mmol/L (3.5-5.1)
[2020-09-15 11:20] LABS: ALBUMIN 4.1 g/dL (3.4-5.0); ALBUMIN/GLOBULIN RATIO 1.1 (1.0-1.7); TOTAL BILIRUBIN 0.4 mg/dL (0.2-1.0)
[2020-09-15] MEDS ORDERED: CONTRAST GIVEN. MC PRN (11:45)
[2020-09-15] MEDS ORDERED: IOHEXOL 300 MG/ML 100ML VIAL. IV ONE (11:45)
--- NOTE | 2020-09-15 12:24 | RAD ---
CT ABDOMEN+PELVIS W History: N/V abd pain Comparison: None. Technique: After administration of intravenous contrast, helical CT of the abdomen and pelvis was per formed from the lung bases through the ischial tuberosities. Coronal and sagittal reconstructions wer e obtained. 75 mL of Omnipaque 300 were used. One or more of the following dose reduction techniques were utilized: Automated exposure control (AEC), Adjustment of mA and/or kV according to patient size , Use of iterative reconstruction technique such as ASiR, CT scan done according to ALARA and image g ently/image wisely Abdomen Findings: The visualized lung bases are clear. The liver, gallbladder, pancreas, spleen, and bilateral adrenal glands are normal. Symmetric renal enhancement. There are a couple of small renal hypodensities, too small to characteri ze but likely cysts. There is no hydronephrosis. The visualized loops of small bowel are normal. The visualized loops of large bowel are normal. There is no evidence of bowel obstruction. Appendix is normal. There is no free fluid. There is no mesenteric or retroperitoneal adenopathy. The abdominal aorta is normal in caliber. Aortoiliac atherosclerotic disease. Pelvis Findings: Mild circumferential bladder wall thickening. Left testicle partially retracted into the inguinal can al. No pelvic free fluid. There is no pelvic or inguinal adenopathy. There is no acute bony abnormality. IMPRESSION: 1. Normal caliber large and small bowel. 2. Mild circumferential bladder wall thickening, which could relate to underdistention, cystitis, or obstructive muscular hypertrophy. Electronically signed by: Jewel Gonzalez MD (09/15/2020 12:22 PM) [id number]
[2020-09-15 13:00] VITALS: BP 135/67
[2020-09-15] MEDS ORDERED: DICY20TA3 PO (13:10)
[2020-09-15] MEDS ORDERED: ONDA4TAB12 PO (13:10)
== END 2020-09-15 13:02 | disposition home or self-care (01) ==
LOC: ER 09:12
DX: R10.84 Generalized abdominal pain (principal); R11.2 Nausea with vomiting, unspecified; F11.29 Opioid dependence with unspecified opioid-induced disorder; F12.10 Cannabis abuse, uncomplicated; F10.10 Alcohol abuse, uncomplicated; F17.200 Nicotine dependence, unspecified, uncomplicated; Z98.890 Other specified postprocedural states
CPT/HCPCS: 36415; 74177; 80053; 80307; 80329; 81001; 83690; 85007; 85025; 96361; 96374; 96375; 99285; G0480; J2405; J3490; J7030; Q9967

== ENCOUNTER 2021-01-16 09:57 | Emergency (ER) | payer OTHER ==
[~2021-01-16] VITALS: Ht 180.3 cm; Wt 70.4 kg
[~2021-01-16 09:57] MED LIST changes: +DICY20TA3 PO; +ONDA4TAB12 PO
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
--- NOTE | 2021-01-16 12:33 | RAD ---
EXAM: Lumbar spine, 3 views; thoracic spine, 3 views. HISTORY: Pain. COMPARISON: None. FINDINGS: Thoracic spine: 3 views of the thoracic spine are obtained. There is no listhesis. The vertebral bodi es are normal in height. No fracture is seen. There is degenerative endplate remodeling with disc spa ce narrowing and ossify ptosis at the lower cervical and upper thoracic levels. Lumbar spine: 3 views of the lumbar spine are obtained. There is minimal retrolisthesis of L5 and S1. There is mild multilevel endplate remodeling. There is no fracture. IMPRESSION: 1. Multilevel degenerative change, primarily at the lower cervical and upper thoracic levels. 2. No acute osseous finding. Electronically signed by: Margot Ceja MD (01/16/2021 12:31 PM) [id number]
[2021-01-16 12:48] VITALS: BP 144/89
== END 2021-01-16 13:21 | disposition home or self-care (01) ==
LOC: ER 09:57
DX: M54.6 Pain in thoracic spine (principal); M54.5 Low back pain; G89.11 Acute pain due to trauma; F17.200 Nicotine dependence, unspecified, uncomplicated; V69.40XA Driver of heavy transport vehicle injured in collision with unspecified motor vehicles in traffic accident, initial encounter; Y93.89 Activity, other specified; Y92.488 Other paved roadways as the place of occurrence of the external cause; Y99.8 Other external cause status
CPT/HCPCS: 72072; 72100; 99284